=== PATIENT | female | born 1965 | race Caucasian/White ===

== ENCOUNTER → 2019-03-29 09:42 | Outpatient (BNVA) | payer OTHER, SELFPAY | PROVIDERS: Family Provider Internal Medicine; PCP Internal Medicine; Visit Provider Psychiatry & Neurology Psychiatry | DX: Z01.89 Encounter for other specified special examinations (principal) | CPT/HCPCS: 36415; 80053; 80061; 83036; 84443; 85025 ==

== ENCOUNTER 2019-12-24 15:28 | Emergency (ER) | payer OTHER, SELFPAY ==
[2019-12-24] VITALS (7 sets, daily range): BP systolic 157–196; BP diastolic 80–116; PULSE 86–97; RESP 14–20; TEMP 36.7; O2SAT 94–97; BMI 38.4
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
[2019-12-24 16:18] LABS: Basophils # 0.1 10^3/uL (0.0-0.1); Basophils % 0.6 %; Eosinophils # 0.4 10^3/uL (0.0-0.8); Eosinophils % 4.1 %; Hematocrit 43.4 % (37.0-47.0); Hemoglobin 13.9 g/dL (11.5-15.3); Lymphocytes # 2.3 10^3/uL (0.8-4.8); Lymphocytes % 23.1 %; Mean Corpuscular Volume 84.3 fL (81-99); Mean Platelet Volume 9.6 fL (7.4-10.4); Monocytes # 0.6 10^3/uL (0.2-0.9); Monocytes % 6.1 %; Neutrophils # 6.48 10^3/uL (1.8-7.7); Neutrophils % 65.8 %; Nucleated Red Blood Cells % 0 %; Platelet Count 317 10^3/cmm (130-400); Red Blood Count 5.15 10^6/uL (4.1-5.3); Red Cell Distribution Width 13.2 % (12.1-15.1); White Blood Count 9.8 10^3/uL (4.0-10.0)
[2019-12-24 16:39] LABS: Alanine Aminotransferase 47 U/L (0-33); Albumin Level 4.2 g/dL (3.5-5.2); Alkaline Phosphatase 100 IU/L (35-105); Anion Gap 17.5 (5-19); Aspartate Amino Transferase 37 U/L (0-32); Blood Urea Nitrogen 11 mg/dL (6-20); Carbon Dioxide 23 mmol/L (22-29); Chloride 104 mmol/L (98-107); Globulin 2.3 g/dL (1.3-4.6); Glomerular Filtration Rate 74.7 mL/min (90-130); Glucose 122 mg/dL (65-115); Osmolality Calculated 293 mOsm/kg (285-295); Potassium 3.5 mmol/L (3.5-5.1); Sodium 141 mmol/L (136-145); Total Bilirubin 0.3 mg/dL (0.15-1.2); Total Protein 6.5 g/dL (6.6-8.7)
[2019-12-24] MEDS: iohexol 300 mg/mL 100 mL Btl IV (17:16)
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
--- NOTE | 2019-12-24 19:00 | PC.NURSE ---
report received from ZHENG Acosta and care transferred to ZHENG Granados
[2019-12-24 19:17] LABS: Add Urine Microscopic? NO
[2019-12-24 19:25] LABS: Bilirubin Urine Neg (Negative); Blood Urine Neg (Negative); Glucose Urine UA Norm (Normal); Ketones Urine Negative (Negative); Leukocyte Esterase Urine Negative (Negative); Nitrate Urine Negative (Negative); Protein Urine Neg (Negative); Urine Appearance Clear (CLEAR); Urine Color Yellow (Yellow); Urobilinogen Urine Norm (Negative); pH Urine 6.5 (5-7)
== END 2019-12-24 20:21 | disposition home or self-care (01) ==
PROVIDERS: Family Medicine; Emergency Provider Emergency Medicine; Family Provider Internal Medicine
DX: S39.012A Strain of muscle, fascia and tendon of lower back, initial encounter (principal); Z87.891 Personal history of nicotine dependence; V89.2XXA Person injured in unspecified motor-vehicle accident, traffic, initial encounter
CPT/HCPCS: 12345; 70450; 71260; 72125; 72131; 74177; 80053; 81003; 85025; 99283; Q9967

== ENCOUNTER → 2021-07-08 10:17 | Outpatient (BNVA) | payer OTHER, SELFPAY | PROVIDERS: Family Provider Internal Medicine; PCP Family Medicine; Visit Provider Nurse Practitioner Psychiatric/Mental Health | DX: Z79.899 Other long term (current) drug therapy (principal); Z51.81 Encounter for therapeutic drug level monitoring; Z03.89 Encounter for observation for other suspected diseases and conditions ruled out | CPT/HCPCS: 80053; 80175; 84439; 84443; 85025 ==

== ENCOUNTER 2024-04-18 11:29 | Outpatient (CLI) | payer BC, MEDICAID, SELFPAY ==
--- NOTE | 2024-04-18 11:35 | XR_ITS ---
WS: [id number] Right ankle, 3 views, 04/18/2024 Clinical Data: RIGHT ANKLE PAIN Comparison: Right ankle, 09/29/2011 Findings: No fractures or dislocations are seen. The ankle mortise is normal. The talus and calcaneus are unrem arkable. No soft tissue swelling over the medial or lateral malleolus is seen. There is a plantar spur and calcaneal spur. XR/XR ankle RT min 3V* [id number] Impression: Negative right ankle.
== END 2024-04-18 11:30 | disposition home or self-care (01) ==
LOC: RAD 11:31
PROVIDERS: PCP Family Medicine; Visit Provider Family Medicine
DX: M25.571 Pain in right ankle and joints of right foot (principal); M77.31 Calcaneal spur, right foot; M77.8 Other enthesopathies, not elsewhere classified
CPT/HCPCS: 73610

== ENCOUNTER → 2024-04-19 10:54 | Outpatient (BNVA) | payer BC, MEDICAID, SELFPAY | PROVIDERS: PCP Family Medicine; Visit Provider Student in an Organized Health Care Education/Training Program | DX: M79.641 Pain in right hand (principal); M18.11 Unilateral primary osteoarthritis of first carpometacarpal joint, right hand | CPT/HCPCS: 73130 ==

== ENCOUNTER → 2024-05-04 10:52 | Outpatient (BNVA) | payer BC, MEDICAID, SELFPAY | PROVIDERS: PCP Family Medicine | DX: R50.9 Fever, unspecified (principal); J10.1 Influenza due to other identified influenza virus with other respiratory manifestations; R06.2 Wheezing | CPT/HCPCS: 87400 ==

== ENCOUNTER 2024-05-20 06:50 | Day surgery (SDC) | payer BC, MEDICAID, SELFPAY ==
[2024-05-20] VITALS (9 sets, daily range): BP systolic 123–164; BP diastolic 64–85; PULSE 71–80; RESP 16–18; TEMP 36.3–37.1; O2SAT 95–100; BMI 39.6
[2024-05-20] MEDS: scopolamine 1 mg PATCH 1 PATCH TRANSDERMA (07:22)
[2024-05-20] MEDS: ketorolac 30 mg/mL INJ IVP (07:22)
[2024-05-20] MEDS: sodium chloride 0.9% 1,000 ML 30 ML IV (07:29)
[2024-05-20] MEDS: acetaminophen 1,000 MG/100 ML PIGGYBACK 400 MG IV (07:31)
--- NOTE | 2024-05-20 09:04 | ANES.PREANE2 ---
Pre-Anesthetic Assessment Height/Weight: Height 1.55 m Weight 95.254 kg Temp Pulse Resp BP Pulse Ox O2 Del Method 97.6 F 79 18 150/74 95 Room Air 05/20/24 07:13 05/20/24 07:13 05/20/24 07:13 05/20/24 07:22 05/20/24 07:13 05/20/24 07:14 Preop Diagnosis: Mucous Cyst Operation Date: 05/20/24 09:30 Proposed Procedures p index finger mucous cyst excision W/dorsal osteophyte ostectomy & middle finger mucous cyst excision W/ dorsal osteophyte ostectomy(Right) - Elvis Yeager DO Familial anesthetic complications: none Was Beta Lindsay taken within 24 hours: N/A Was Clonidine taken within 24 hours: N/A Last intake: Intake Last Liquid Date 05/20/24 Last Liquid Time 06:00 Last Solid Date 05/19/24 Last Solid Time 18:00 Social Alcohol and No tobacco occassional Alcohol Exam alert, oriented x 3, clear to auscultation bilaterally and regular rate & rhythm Airway Submandibular: within normal limits Cervical ROM: within normal limits Mallampati: Class II Dentition: full History/ROS No significant history except as noted and No significant complaints Pulmonary Chronic Obstructive Pulmonary Disease, Exertional Dyspnea and Sleep Apnea CPAP at Night CV/HEM Hypertension None reported Hepatic None reported GI None reported Metabolic None reported Musc/skel None reported Neuropsych None reported Anesthetic Plan ASA status: 2 Anesthesia: MAC Risk of > 500 ml blood loss (7ml/kg in children): No Medications/Allergies Home Medications ?Medication ?Instructions ?Recorded ?Confirmed ?Last Taken ?Type fexofenadine 180 mg tablet 180 mg PO DAILY 07/24/19 05/17/24 05/16/24 History (Cici Allergy) lisinopril 20 mg tablet 40 mg (2 x 20 mg) PO DAILY #180 03/09/22 05/17/24 05/16/24 Rx tabs atorvastatin 40 mg tablet 40 mg PO .q hs 01/26/23 05/17/24 05/16/24 History levothyroxine 112 mcg capsule 112 mcg PO DAILY 10/31/23 05/17/24 05/17/24 History lamotrigine 150 mg tablet 150 mg PO QAM #90 tabs 01/30/24 05/17/24 05/20/24 Rx Right Thumb CMC Joint Brace #1 ea 04/19/24 05/13/24 Unknown Rx buspirone 15 mg tablet 15 mg PO BID #60 tabs 05/06/24 05/17/24 05/20/24 Rx fluoxetine 40 mg capsule 80 mg (2 x 40 mg) PO QAM #60 caps 05/06/24 05/17/24 05/16/24 Rx budesonide-formoterol HFA 80 2 puff inhalation BID 05/13/24 05/17/24 05/17/24 History mcg-4.5 mcg/actuation aerosol inhaler lamotrigine 100 mg tablet 100 mg PO QPM 05/13/24 05/17/24 05/16/24 History pantoprazole 40 mg tablet,delayed 40 mg PO ONCE 05/13/24 05/17/24 05/16/24 History release Allergies Allergy/AdvReac Type Severity Reaction Status Date / Time No Known Allergies Allergy Verified 05/13/24 10:03 Current Medications Generic Name Dose Route Start Last Admin Trade Name Freq PRN Reason Stop Dose Admin Sodium Chloride 1,000 mls @ 30 mls/hr 05/20/24 07:15 05/20/24 07:29 Sodium Chloride 0.9% IV 05/21/24 07:14 30 mls/hr .Q24H LEO Administration PFSH Anesthesia Medical History Marital conflict Frequent headaches Essential hypertension Psychiatric care Social History (Updated 05/13/24 @ 10:02 by Dorinda Kapoor) Smoking and tobacco/nicotine status: never used tobacco/nicotine Quit status (tobacco/nicotine): has quit using Year quit tobacco: 03/1999 Former quit date comment: smoked for 20 years Current gender identity: Male Data Anesthesia Cardiac Studies: No Data to Display
--- NOTE | 2024-05-20 09:41 | W.PM.OPSUD ---
Surgery/Procedure H&P Update DATE OF PROCEDURE: May 20, 2024 DATE H&P PERFORMED: 04/19/24 H&P UPDATE INFORMATION: I have reviewed H&P completed within last 30 days, I have examined patient prior to procedure and No changes to prior documentation PREOP DIAGNOSIS: Right index and middle finger mucous Cyst, prominent dorsal osteophytes PRIMARY INDICATION FOR PROCEDURE: Right index and middle finger mucous Cyst with prominent dorsal osteophytes PLANNED PROCEDURE: Operation Date: 05/20/24 09:30 Proposed Procedures p index finger mucous cyst excision W/dorsal osteophyte ostectomy & middle finger mucous cyst excision W/ dorsal osteophyte ostectomy(Right) - Elvis Yeager DO
[2024-05-20] MEDS: ceFAZolin 2,000 MG in sodium chloride 0.9% (plus) 50 ML 100 MG IV (10:00)
--- NOTE | 2024-05-20 11:17 | P.OP_ITS ---
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 She has been worked up in the outpatient setting and is failed conservative treatment approach.? Patient has right index and middle finger noticeable?mucous?cyst?that appears to be associated with DIP arthritis with possible dorsal osteophyte prominence.? Patient's failed conservative tx.? She wishes to proceed with surgical intervention.? We talked about the risk benefits complications and alternatives with surgical nonsurgical treatment options.? Understanding risk of surgery she agrees to proceed with a right index finger mucous cyst excision W/dorsal osteophyte ostectomy & middle finger mucous cyst excision W/ dorsal osteophyte ostectomy.? All questions answered. Procedure: Patient was seen evaluated in the preoperative holding area.? Consent was reviewed and signed with patient.? Correct extremity was then marked.? Patient was then seen and evaluated by the anesthesia department once cleared for surgery patient was then taken back to the operative suite patient was placed in supine position and all bony prominences well-padded the patient was properly secured to the bed.? Armboard was applied to the right upper extremity. This point time the right upper extremity was then prepped and draped in standard orthopedic fashion.? A final timeout was performed.? Patient received appropriate preoperative antibiotics. Prior to proceeding with incision sites I then performed digital block of the right index and middle finger under sterile aseptic technique A nonsterile tourniquet had been applied to the right upper extremity Esmarch tourniquet was used exsanguinate right upper extremity tourniquet insufflated 250 mmHg. We started off with the right index finger at the DIP joint. Patient had a fixed flexion contracture with significant prominent palpable cyst/osteophyte on the dorsal index finger on the radial and ulnar sides of the digit. As a result decision was made to do an H-type incision over the DIP joint standard H incision was made with through skin only switched to [place] blade and meticulous dissection was made subcutaneous tissue and full-thickness flaps both proximally and distally. At this point in time I had not direct visualization of the extensor mechanism there was no palpable or visible mucous cyst on the index finger patient had significant prominent osteophytes which is what was causing the prominence dorsally. As a result I made 2 parallel incisions on the radial and ulnar sides of the extensor mechanism and then subsequently under meticulous dissection staying directly on bone peeled the under surface adhesions of the extensor mechanism off of the dorsal prominent osteophytes that were causing such prominence and pain on the patient. Once again it was clearly evident looking at the DIP joint that there was DIP joint arthritis I subsequently utilized a synovial rongeur to rongeur off the prominent osteophyte on the radial side of the digit and then mobilizing over on the ulnar side was able to perform the same dorsal osteophyte ostectomy with synovial rongeur to its entirety where there is no longer any dorsal prominence. At this point in time I then utilized a small tipped rasp and then subsequently keeping the extensor mechanism intact rasp the dorsal prominent osteophytes to smooth this all out completely flush with the middle phalanx this was satisfactory on visualization as well as through digital palpable inspection. At this point in time this completed the procedure to the right index finger this was thoroughly irrigated and I moved onto the right middle finger. The right middle finger was very comparable and its dorsal osteophyte prominence with both a prominent radial and ulnar sides of the digit at the DIP joint. As a result I once again since patient had a fixed flexion contracture with significant palpable cyst/osteophyte on the dorsal index finger on the radial and ulnar sides of the digit I decided to do an H-type incision over the DIP joint. Standard H incision was made through skin and switched to [place] blade meticulous dissection was made through the subcutaneous tissue creating full- thickness flaps with proximally and distally at this point in time I did visualize a small mucous cyst all once again creating both a parallel incision on the radial and ulnar sides of the extensor mechanism the cyst was very small in nature and immediately decompressed once I was removing the dorsal osteophyte on the ulnar side of the digit as result this was too small and hardly encapsulated to send for any specimen. At this point in time I then subsequently continued with my dissection once again peeling off the extensor retinaculum adhesions that were prominent on the dorsal osteophytes this was done both radially and ulnarly and once I had direct visualization protection of the extensor mechanism utilize a synovial rongeur to once again remove out the prominent osteophytes on the radial side of the digit and then mobilizing over the ulnar side perform the same dorsal osteophyte ostectomy with synovial rongeur to its entirety where there is no longer any dorsal prominence is off the ulnar side of the digit. At this point time I then use a small tipped rasp and subsequently keeping the extensor mechanism intact rest of the dorsal prominences and smooth this out till is completely flush with the middle phalanx this was satisfactory visualization as well as digital palpable bullocks inspection. This point time this completed procedure for the right middle finger. ? Tourniquet was deflated. Hemostasis was satisfactory. Wound bed was then thoroughly irrigated hemostasis was maintained with bipolar electrocautery.? Next I closed the incision with interrupted nylon suture.? Incision sites were then dressed with Xeroform 4 x 4's Kerlix Jacob wrap and an Anuel wrap.? Patient was then awakened from anesthesia and taken to PACU in stable condition. Disposition: Patient taken to PACU in stable condition recovering well.? Dressing on in place clean dry and intact.? Patient was receive appropriate discharge instruction as well as pain medication postoperatively.? Patient may be allowed weightbearing as tolerated to the right hand and encourage range of motion once dressing come down after 72 hours.? Patient to follow-up with ortho in the office in 2 weeks.? Patient understands and agrees with current plan.? All questions answered.
--- NOTE | 2024-05-20 11:17 | P.BOP_ITS ---
Date of Procedure: 05/20/2024 Surgeon: Elvis Yeager DO Product Development Actuary(s): None Procedure(s) performed: Right index finger DIP joint dorsal osteophyte ostectomy x 2 Right middle finger DIP joint mucous cyst excision Right middle finger DIP joint dorsal osteophyte ostectomy x 2 Findings of the procedure(s): Patient was found to have significant prominent dorsal osteophytes on both the radial and ulnar sides of the index finger and middle finger DIP joints. In the right index finger there is no significant mucous cyst appreciated this was all just significant prominent dorsal osteophytes which I subsequently made parallel incisions on the radial and ulnar side of the tendon and then mobilized the osteophytes and utilized a rongeur to remove the radial and ulnar sided osteophyte prominence and then utilized a rasp to flatten this down. Then thoroughly irrigated and this completed my work in the right index finger. Right middle finger was performed in the same fashion however there was a small little mucous cyst associated on the ulnar side while dissecting out the prominent dorsal osteophytes on the ulnar side I then subsequently in standard fashion mobilized on both the radial and ulnar sides the extensor tendon mechanism and then removed the dorsal osteophytes and utilized a rasp to smooth this out both extensor mechanisms were left intact however they were significantly stretched and chronic thinning appreciated due to the prominence of the previous osteophytes. Tourniquet deflated hemostasis factory patient placed in bulky dressing taken back to PACU in stable condition. Estimated blood loss: 5 mL Specimen(s) removed: Removed mucous cyst and dorsal osteophytes from the index middle finger these were not sent for pathology these were removed and all small fragmentations. 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
--- NOTE | 2024-05-20 12:20 | ANE.PACU2 ---
Inpatient post-anesthesia follow up: Airway intact: Yes Vital signs: Temperature 98.7 F Pulse Rate 80 Respiratory Rate 16 Blood Pressure 123/85 Pulse Oximetry 96 Oxygen Delivery Me thod Room Air Oxygen Flow Rate 4 Fraction of Inspir ed Oxygen Hydration adequate: Yes Nausea and vomiting: No Pain level: 1 Mental status: Baseline
== END 2024-05-20 12:20 | disposition home or self-care (01) ==
PROVIDERS: PCP Family Medicine; Visit Provider Student in an Organized Health Care Education/Training Program
PROC: (CPT 26236; principal; 2024-05-20 09:30)
DX: M25.741 Osteophyte, right hand (principal); M25.841 Other specified joint disorders, right hand; M19.041 Primary osteoarthritis, right hand; I10 Essential (primary) hypertension; Z87.891 Personal history of nicotine dependence; Z79.899 Other long term (current) drug therapy; Z79.890 Hormone replacement therapy
CPT/HCPCS: 26236 ×2; J0131; J0690; J1885; J2704; J3010; J7030

== ENCOUNTER 2024-05-24 12:10 | Outpatient (CLI) | payer BC, MEDICAID, SELFPAY ==
--- NOTE | 2024-05-24 12:15 | MR_ITS ---
WS: [id number] MRI BRAIN WITH AND WITHOUT CONTRAST HISTORY: G43.909 - Migraine, unspecified, not intractable, without... COMPARISON: 03/26/2015, CT head 12/24/2019 TECHNIQUE: Multiplanar imaging performed through the brain with MultiHance 20 ml's IV. No acute infarcts are seen. River-white matter differentiation is well preserved. There are a few tiny subcortical foci in the LEFT frontal lobe. No prior infarct and no hemorrhage. No susceptibility artifacts or prior lacunar infarcts. Ventricles and extra-axial spaces are normal. Partially empty sella turcica. Clivus is normal. Visualized posterior fossa and brainstem are also normal. Postcontrast images are negative for masses or vascular malformations. Dural venous sinuses are normal. Paranasal sinuses: Small polyp or mucous retention cyst in the RIGHT maxillary sinus. Mastoid air cells: Normal. Calvarium and scalp: Normal. MR/MR head wo/w con [id number] IMPRESSION: 1. No acute infarct or hemorrhage. 2. No enhancing masses or vascular malformations. 3. Incidental note is made of a partially empty sella turcica. 4. Minimal small vessel disease. Similar to the prior study from 03/26/2015.
[2024-05-24] MEDS: gadobenate dimeglumine 20 mL vial IV (12:56)
== END 2024-05-24 12:11 | disposition home or self-care (01) ==
LOC: RAD 12:10
PROVIDERS: PCP Family Medicine; Visit Provider Psychiatry & Neurology Neurology
DX: G43.909 Migraine, unspecified, not intractable, without status migrainosus (principal); R93.0 Abnormal findings on diagnostic imaging of skull and head, not elsewhere classified
CPT/HCPCS: 70553

== ENCOUNTER → 2024-06-18 10:39 | Outpatient (BNVA) | payer BC, SELFPAY | PROVIDERS: Visit Provider Podiatrist Foot & Ankle Surgery | DX: M25.571 Pain in right ankle and joints of right foot (principal); M79.671 Pain in right foot; M76.71 Peroneal tendinitis, right leg | CPT/HCPCS: 73610; 73620 ==

== ENCOUNTER 2024-06-18 12:58 | Outpatient (RCR) | payer BC, SELFPAY | END 2024-06-24 23:59 | disposition home or self-care (01) | LOC: SOT 12:58 | PROVIDERS: Visit Provider Physician Assistant | DX: M19.041 Primary osteoarthritis, right hand (principal); M71.341 Other bursal cyst, right hand | CPT/HCPCS: 97165 ==

== ENCOUNTER 2024-06-25 12:55 | Outpatient (CLI) | payer BC, MEDICAID, SELFPAY ==
--- NOTE | 2024-06-25 13:00 | MRR_ITS ---
PROCEDURE INFORMATION: Exam: MR Right Lower Extremity Joint Without Contrast; Ankle Exam date and time: 06/25/2024 1:10 PM Age: 59 years old Clinical indication: Ankle; Right; The condition began in March while performing a ballet-type exercise without a specific twisting injury, but rather the pain initiated with the activity. The pain persists and is made worse by walking, with continuous discomfort that minimally eases at rest. The pain's trajectory begins from the toe, through the foot, to the heel's back, being most intense around the peroneal groove. ; Additional info: Eval for tendon and ligaments tears and ruptures, suspects a peroneal tendon tear TECHNIQUE: Imaging protocol: Magnetic resonance imaging of the right lower extremity without contrast. Exam focused on the ankle. COMPARISON: CR XR ankle RT min 3V* [id number] 06/18/2024 10:46 AM FINDINGS: Bones/joints: See Peroneal tendons finding. LIGAMENTS: Distal tibiofibular syndesmosis: Unremarkable. No tear. Anterior talofibular ligament: Unremarkable. No tear. Posterior talofibular ligament: Unremarkable. No tear. Calcaneofibular ligament: Unremarkable. No tear. Deltoid ligament complex: Unremarkable. No tear. TENDONS: Flexor tendons of foot: Unremarkable as visualized. Tibialis posterior tendon: Unremarkable as visualized. Peroneal tendons: Peroneal tendon: There is evidence of a high-grade partial tear involving the peroneal longus tendon as it courses underneath the cuboid bone with increased indistinct fluid-like signal changes as well as a well discerned cleft involving majority of tendon thickness at this location. No obvious tendinous retraction detected. Peroneal brevis tendon is intact. Extensor tendons of foot: Unremarkable as visualized. Tibialis anterior tendon: Unremarkable as visualized. Achilles tendon: Unremarkable as visualized. Tarsal canal (Sinus tarsi): Unremarkable. Normal signal of the fat. Tarsal tunnel: Unremarkable. Soft tissues: Unremarkable. Plantar fascia: Plantar fascia is unremarkable. MR/MR ankle RT wo con* [id number] IMPRESSION: High-grade partial tear involving the peroneal longus tendon located underneath the cuboid bone.
== END 2024-06-25 12:56 | disposition home or self-care (01) ==
PROVIDERS: PCP Family Medicine; Visit Provider Podiatrist Foot & Ankle Surgery
DX: M76.71 Peroneal tendinitis, right leg (principal); S96.811A Strain of other specified muscles and tendons at ankle and foot level, right foot, initial encounter; X58.XXXA Exposure to other specified factors, initial encounter; R93.6 Abnormal findings on diagnostic imaging of limbs
CPT/HCPCS: 73721

== ENCOUNTER 2024-08-01 08:17 | Day surgery (SDC) | payer BC, MEDICAID, SELFPAY ==
[2024-08-01 08:47] VITALS: BMI 38.4
[2024-08-01 08:49] VITALS: BP 163/87; PULSE 73; RESP 18; TEMP 36.6; O2SAT 94
[2024-08-01 08:54] VITALS: BP 163/87
[2024-08-01] MEDS: ketorolac 30 mg/mL INJ IVP (08:54)
[2024-08-01] MEDS: scopolamine 1 mg PATCH 1 PATCH TRANSDERMA (08:54)
[2024-08-01] MEDS: acetaminophen 1,000 MG/100 ML PIGGYBACK 400 MG IV (08:54)
--- NOTE | 2024-08-01 08:54 | XR_ITS ---
WS: [id number] Exam: XR finger RT min 2V [id number] Date/Time of Exam: 08/01/2024 8:54 AM Reason For Exam: OR PIC, Comparison 04/19/2024. Limited intraoperative images of the RIGHT hand confirm excision of the greater and lesser multangular. Images obtained for intraoperative purposes.
[2024-08-01] MEDS: sodium chloride 0.9% 1,000 ML 30 ML IV (08:55)
--- NOTE | 2024-08-01 09:13 | ANES.PREANE2 ---
Pre-Anesthetic Assessment Height/Weight: Height 5 ft 2 in Weight 210 lb Temp Pulse Resp BP Pulse Ox O2 Del Method 98 F 73 18 163/87 94 Room Air 08/01/24 08:49 08/01/24 08:49 08/01/24 08:49 08/01/24 08:54 08/01/24 08:49 08/01/24 08:49 Preop Diagnosis: Arthritis of CMC joint of thumb Operation Date: 08/01/24 09:50 Proposed Procedures p RIGHT Basil Thumb Joint Arthroplasty(Right) - Elvis Yeager, DO Was Beta Lindsay taken within 24 hours: N/A Was Clonidine taken within 24 hours: N/A Last intake: Intake Last Liquid Date 07/31/24 Last Liquid Time 23:00 Last Solid Date 07/31/24 Last Solid Time 23:00 Social No alcohol and No tobacco Exam alert, oriented x 3, clear to auscultation bilaterally and regular rate & rhythm Airway Submandibular: Other (Borderline TM distance) Cervical ROM: within normal limits Mallampati: Class II Dentition: full Anesthetic Plan ASA status: 3 Anesthesia: MAC and Regional (specify below) Other: No prior issues with anesthesia NPO since yesterday evening History of hypertension on lisinopril Hypothyroidism on Synthroid GERD, controlled with Pepcid Denies any pulmonary issues plan for pre-op PNB with MAC anesthesia Medications/Allergies Home Medications ?Medication ?Instructions ?Recorded ?Confirmed ?Last Taken ?Type lisinopril 20 mg tablet 40 mg (2 x 20 mg) PO DAILY #180 03/09/22 07/31/24 07/31/24 Rx tabs atorvastatin 40 mg tablet 40 mg PO .q hs 01/26/23 07/31/24 07/31/24 History levothyroxine 112 mcg capsule 112 mcg PO DAILY 10/31/23 07/31/24 08/01/24 History Right Thumb CMC Joint Brace #1 ea 04/19/24 07/30/24 07/31/24 Rx budesonide-formoterol HFA 80 2 puff inhalation BID PRN 05/13/24 07/31/24 07/31/24 History mcg-4.5 mcg/actuation aerosol Shortness Of Breath inhaler pantoprazole 40 mg tablet,delayed 40 mg PO ONCE 05/13/24 07/31/24 07/31/24 History release buspirone 15 mg tablet 15 mg PO BID #60 tabs 06/03/24 07/31/24 07/31/24 Rx fluoxetine 40 mg capsule 80 mg (2 x 40 mg) PO QAM #60 caps 06/03/24 07/31/24 07/31/24 Rx lamotrigine 100 mg tablet 100 mg PO QPM #30 tabs 06/03/24 07/31/24 07/31/24 Rx lamotrigine 150 mg tablet 150 mg PO QAM #30 tabs 06/03/24 07/31/24 07/31/24 Rx Spectrum style-AFO to right #1 ea 07/30/24 07/30/24 07/31/24 Rx Allergies Allergy/AdvReac Type Severity Reaction Status Date / Time No Known Allergies Allergy Verified 07/30/24 14:19 Current Medications Generic Name Dose Route Start Last Admin Trade Name Freq PRN Reason Stop Dose Admin Sodium Chloride 1,000 mls @ 30 mls/hr 08/01/24 08:30 08/01/24 08:55 Sodium Chloride 0.9% IV 08/02/24 08:29 30 mls/hr .Q24H LEO Administration PFSH Anesthesia Medical History Marital conflict Frequent headaches Essential hypertension Psychiatric care Social History Smoking and tobacco/nicotine status: former use of tobacco/nicotine Quit status (tobacco/nicotine): has quit using Year quit tobacco: 03/1999 Former quit date comment: smoked for 20 years Current gender identity: Female
--- NOTE | 2024-08-01 09:58 | ANES.PROC ---
Anesthesia Procedures Procedure/Date: 08/01/24 Nerve Block ^: Nerve Block 1: Main Anesthesia: other (100 mcg fentanyl and 2 mg Versed) Time Out Performed: Yes Consent: requested by attending/covering physician and from patient Nerve block location: supraclavicular Anesthesia monitors applied: pulse oximetry, EKG, BP cuff and oxygen Nerve block position: supine Anesthetic Used: ropivicaine 0.5% Amount of anesthesia used (mL): 30 Ultrasound used to: recognize landmarks Nerve Stimulator Used?: Yes Interscalene/Femoral BLK: other needle (pjunk 4 inch) Injection: neg aspiration of heme Patient Tolerated Procedure: well Complications: none Additional Comments: Decadron 4 mg added to block
--- NOTE | 2024-08-01 10:02 | PC.NURSE ---
0950 patient placed on 2lpm o2 via n/c and placed on the monitor, right shoulder block performed by traci 30 ml total of 0.5% ropivicaine injected using ultrasound guidance. patient tolerated well
--- NOTE | 2024-08-01 10:40 | W.PM.OPSUD ---
Surgery/Procedure H&P Update DATE OF PROCEDURE: August 01, 2024 DATE H&P PERFORMED: 07/09/24 H&P UPDATE INFORMATION: I have reviewed H&P completed within last 30 days, I have examined patient prior to procedure and No changes to prior documentation PREOP DIAGNOSIS: Arthritis of CMC joint of thumb PRIMARY INDICATION FOR PROCEDURE: Right thumb CMC basal joint arthritis PLANNED PROCEDURE: Operation Date: 08/01/24 09:50 Proposed Procedures p RIGHT Basil Thumb Joint Arthroplasty(Right) - Elvis Yeager DO
[2024-08-01] MEDS: ceFAZolin 2,000 MG in sodium chloride 0.9% (plus) 50 ML 100 MG IV (11:00)
--- NOTE | 2024-08-01 12:42 | W.PM.BPON ---
Date of Procedure: 08/01/2024 Surgeon: Elvis Yeager DO Assembler Watch Train(s): Flaco Yeager PA-C Procedure(s) performed: Right thumb basal joint arthroplasty Right thumb APL tendon slip transfer Findings of the procedure(s): Patient underwent procedure as planned without issues or complications Estimated blood loss: 10 mL Specimen(s) removed: Trapezium removed Post-operative diagnosis: Right thumb basal joint arthritis
--- NOTE | 2024-08-01 12:43 | PM.OP ---
Operative Report Date of procedure: August 01, 2024 Surgeon: Elvis Yeager DO Finger Buffs Assembler: Flaco Yeager PA-C: PA was necessary for assistance in this case with hand positioning to execute the procedure, retraction and protection of neurovascular structures as well as to assist with wound closure and dressing application Procedure: Preoperative diagnosis: Right thumb?basal?joint?arthritis Procedure done: Right thumb?basal?joint?arthroplasty? Right thumb APL tendon slip transfer Implants: Arthrex fiber lock suspension implant kit for?basal?joint?arthroplasty Surgeon: Elvis Yeager DO Estimated blood loss: 10mL Tourniquet time: 77? min Complications: none IV fluids -800 mL Condition: stable Disposition: same day Brief History: Patient's been seen and worked up in the outpatient setting.? Findings consistent with a Right thumb?basal?joint?severe arthritis. This is failed conservative treatment only provided minimal relief and at this point time her only other treatment option surgical intervention of the Right thumb?basal?joint arthroplasty.? We talked about surgery in detail about the risk benefits complication alternatives to surgical nonsurgical treatment options.? At this point time her persistent pain is causing her significant issues.? She does understand with the?basal?joint?arthroplasty potential loss of range of motion as well as strength but ultimately this would provide her with significant pain relief.? Through shared decision making she elects proceed with surgical intervention of Right thumb?basal?joint?arthroplasty.? Once again she understands risk benefits complication alternatives to each treatment option understanding risk elects to proceed with surgery. Procedure: Patient seen evaluated in the preoperative holding area.? Consent was signed and reviewed with patient.? Correct extremity marked.? Once cleared by anesthesia patient was taken back to the operative suite.? Underwent anesthesia per the anesthesia department.? Patient was placed in supine position all bony prominences well-padded patient was properly secured to the bed.? Underwent anesthesia for the anesthesia department.? A armboard was placed to the Right upper extremity a nonsterile tourniquet applied to the Right upper arm.? Once appropriately anesthetized Right upper extremity was then prepped and draped in standard orthopedic fashion.? Final timeout performed.? Patient received appropriate preoperative antibiotics. Esmarch was used exsanguinate the Right upper extremity and tourniquet was insufflated to 250 mmHg. ?I then utilized a 15 blade in standard longitudinal fashion directly over the Right thumb?basal?joint?.? Sharp scalpel incision was made through skin only.? I then switched to Littler dissection scissors and dissected out the dorsal cutaneous branches which were protected throughout this case.? I then identified the APL and EPL tendons.? I then performed a first dorsal compartment release under direct visualization with loupe magnification.? At this point time I then mobilized the tendons with a blunt wheatie self retractor and went through this interval.? Next I was directly onto the CMC?joint?dorsal capsule.? I then subsequently utilized my dissection scissors to dissect out the dorsal branch radial artery which was then identified and protected by my assistant director of plant operations throughout this case with a Kasdan retractor.? Once I identified the radial artery and dorsal branch I then subsequently performed my capsulotomy of the first CMC?joint?with Cantwell blade.? I then introduced a Mauldin into the arthritic space at the first CMC?joint.? This was confirmed with mini C arm to be the appropriate bone prior to performing my trapeziectomy.? The trapezium was then shelled out and its entirety with a McClamary elevator, freer, and [place] blade with care to protect and not injure any of my remaining carpal bone articular cartilage as well as not to damage the/injure the radial artery as it was protected throughout the case.? This was then removed and identified the FCR within the floor of my incision.? Trapeziectomy was complete and confirmed on mini C arm. At this point time I thoroughly irrigated and removed of all residual bony debris.? There was no significant arthritic changes of the STT?joint. I then subsequently plan to proceed with utilizing Arthrex fiber lock suspensioplasty kit which was then opened and then subsequently drilled into the second metacarpal base.? Once I confirm my appropriate placement with mini C arm all suture anchor.? Once this was confirmed appropriate placement I then drilled the impacted and deployed the bicortical suture anchor.? This had excellent tension and could lift the arm off of the table with its fixation.? I then subsequently identified the radial aspect of the first metacarpal and at its mid substance on the radial aspect I subsequently drilled tapped and holding the thumb in appropriate adduction with not over distraction keeping it in line with the base of the second and subsequently loaded suturetape under appropriate tension and thumb positioning keeping the thumb in adduction and appropriate length impacted this suture anchor which had excellent fixation and the excess suture was then removed.? This was then confirmed to have excellent axial stability and an appropriate suspensioplasty.? Thumb?joint?was stable with axial loading however there was concern for possible impingement if taken through excessive abduction in order to prevent this selected to proceed with APL tendon slip transfer and interposition. This was used to help add Stability and abduction positioning and was to prevent impingement and to help add with fixation& interposition within the voided space from the trapeziectomy.? I then identified a slip of the APL which was then harvested proximally and then weaved this through and around the FCR tendon and then tied this onto the APL tendon itself which created a soft tissue interposition as well as added appropriate abduction to the thumb with appropriate thumb position.? This was then secured with 2 horizontal mattress stitches with 4-0 FiberWire.? I then took the excess of the APL tendon and then placed this within the voided space as a interposition.? I then subsequently had the tourniquet deflated.? Hemostasis was satisfactory.? I then took some Gelfoam to add for soft tissue and interposition within the voided space and hemostasis.? ?Wound bed was once again thoroughly irrigated.? I then closed the incision with deep 3-0 Vicryl and nylon running stitch for skin. final x-rays with mini C arm were then taken showing stable trapeziectomy with soft tissue and suture anchor interposition.? Thumb had excellent axial stability as well as appropriate positioning.? Patient was then dressed with 4 x 4's ABD Curlex and a thumb spica splint With an Anuel wrap.? Patient was awakened from anesthesia and taken to PACU in stable condition. Disposition: Patient taken to PACU in stable condition recovering well.? Patient will receive appropriate discharge instructions as well as pain medication postoperatively. Patient to be 6 weeks of immobilization in thumb spica patient will follow therapy protocol with OT hand therapy for?basal?joint?arthroplasty.? Patient and family understand agrees with current plan.? All questions answered.? We will see in ortho office in 2 weeks.
[2024-08-01 12:55] VITALS: BP 175/70; PULSE 75; RESP 18; TEMP 36.4; O2SAT 94
[2024-08-01 13:00] VITALS: BP 165/86; PULSE 72; RESP 18; O2SAT 94
--- NOTE | 2024-08-01 13:02 | P.PCN_ITS ---
PACU note Narrative: Patient is a 59 female just underwent a right thumb basal joint arthroplasty. Patient transferred to PACU in stable condition. Pain is well controlled. Dressing on hand is dry and in place. Patient's fingers are warm and well- perfused. Patient can wiggle fingers. normal cap refill under 2 seconds. Unable to perform any further assessment due to residual block. Exam: awake Disposition: discharged
[2024-08-01 13:07] VITALS: BP 170/82; PULSE 69; RESP 18; O2SAT 94
[2024-08-01 13:10] VITALS: BP 174/76; PULSE 72; RESP 18; TEMP 36.3; O2SAT 93
--- NOTE | 2024-08-01 14:05 | ANE.PACU2 ---
Inpatient post-anesthesia follow up: Airway intact: Yes Vital signs: Temperature 97.4 F Pulse Rate 72 Respiratory Rate 18 Blood Pressure 174/76 Pulse Oximetry 93 Oxygen Delivery Me thod Room Air Oxygen Flow Rate Fraction of Inspir ed Oxygen Hydration adequate: Yes Nausea and vomiting: No Pain level: 1 Mental status: Baseline
== END 2024-08-01 14:05 | disposition home or self-care (01) ==
PROVIDERS: PCP Family Medicine; Visit Provider Student in an Organized Health Care Education/Training Program
PROC: (CPT 25310; principal; 2024-08-01 09:50)
PROC: (CPT 25310; 2024-08-01 09:50)
DX: M18.11 Unilateral primary osteoarthritis of first carpometacarpal joint, right hand (principal); M19.041 Primary osteoarthritis, right hand; I10 Essential (primary) hypertension; E03.9 Hypothyroidism, unspecified; K21.9 Gastro-esophageal reflux disease without esophagitis; Z79.890 Hormone replacement therapy; Z79.899 Other long term (current) drug therapy; Z87.891 Personal history of nicotine dependence
CPT/HCPCS: 25310; 73140; 76000; A6215; C1713; J0131; J0690; J1885; J2250; J2704; J3010; J7030; J9999

== ENCOUNTER 2024-08-20 11:20 | Outpatient (CLI) | payer BC, MEDICAID, SELFPAY | END 2024-08-20 11:21 | disposition home or self-care (01) | LOC: SOT 11:21 | PROVIDERS: PCP Family Medicine; Visit Provider Physician Assistant | DX: Z46.89 Encounter for fitting and adjustment of other specified devices (principal); M18.11 Unilateral primary osteoarthritis of first carpometacarpal joint, right hand | CPT/HCPCS: 97760; L3807 ==

== ENCOUNTER → 2024-09-17 10:07 | Outpatient (BNVA) | payer BC, MEDICAID, SELFPAY | PROVIDERS: PCP Family Medicine; Visit Provider Physician Assistant | DX: Z98.890 Other specified postprocedural states (principal); M65.321 Trigger finger, right index finger | CPT/HCPCS: 73130 ==

== ENCOUNTER 2024-09-19 09:52 | Outpatient (RCR) | payer BC, MEDICAID, SELFPAY | END 2024-09-23 23:55 | disposition home or self-care (01) | LOC: SOT 09:52 | PROVIDERS: PCP Family Medicine; Visit Provider Student in an Organized Health Care Education/Training Program | DX: M18.11 Unilateral primary osteoarthritis of first carpometacarpal joint, right hand (principal) | CPT/HCPCS: 97165 ==

== ENCOUNTER → 2024-11-05 10:11 | Outpatient (BNVA) | payer BC, MEDICAID, SELFPAY | PROVIDERS: PCP Family Medicine; Visit Provider Physician Assistant | DX: Z98.890 Other specified postprocedural states (principal); M65.321 Trigger finger, right index finger | CPT/HCPCS: 73130 ==

== ENCOUNTER → 2024-11-11 13:35 | Outpatient (BNVA) | payer BC, MEDICAID, SELFPAY | PROVIDERS: PCP Family Medicine; Visit Provider Family Medicine | DX: F31.81 Bipolar II disorder (principal); E03.9 Hypothyroidism, unspecified | CPT/HCPCS: 80053; 80061; 84439; 84443; 85025 ==

== ENCOUNTER → 2024-12-31 12:49 | Outpatient (BNVA) | payer BC, MEDICAID, SELFPAY | PROVIDERS: PCP Family Medicine; Visit Provider Student in an Organized Health Care Education/Training Program | DX: Z98.890 Other specified postprocedural states (principal) | CPT/HCPCS: 73130 ==

== ENCOUNTER 2025-02-18 11:04 | Day surgery (SDC) | payer BC, MEDICAID, SELFPAY ==
[2025-02-18 11:24] VITALS: BP 149/97; PULSE 85; RESP 16; TEMP 36.6; O2SAT 97; BMI 38.4
--- NOTE | 2025-02-18 11:25 | ANES.PREANE2 ---
Pre-Anesthetic Assessment Height/Weight: Height 15.54 m Operation Date: 02/18/25 12:45 Proposed Procedures p EGD EGD with Biopsy [id number](Not Applicable) - Shar Jackson MD Familial anesthetic complications: None Was Beta Lindsay taken within 24 hours: N/A Was Clonidine taken within 24 hours: N/A Last intake: > 8hrs Social No alcohol and No tobacco Exam alert, oriented x 3, clear to auscultation bilaterally and regular rate & rhythm Airway Mallampati: Class III Dentition: full (poor dentition) Pulmonary Chronic Obstructive Pulmonary Disease CV/HEM Hypertension GI Gastroesophageal Reflux Disease Metabolic Hyperlipidemia, Morbid Obesity and Thyroid Disease Anesthetic Plan ASA status: 3 Anesthesia: MAC Risk of > 500 ml blood loss (7ml/kg in children): No Medications/Allergies Home Medications ?Medication ?Instructions ?Recorded ?Confirmed ?Last Taken ?Type lisinopril 20 mg tablet 40 mg (2 x 20 mg) PO DAILY #180 03/09/22 02/18/25 02/17/25 Rx tabs budesonide-formoterol HFA 80 2 puff inhalation BID PRN 05/13/24 02/18/25 02/17/25 History mcg-4.5 mcg/actuation aerosol Shortness Of Breath inhaler galcanezumab-gnlm 120 mg/mL 120 mg SUBCUT .ONCE PER MONTH #1 mL 09/20/24 02/18/25 02/06/25 Rx subcutaneous pen injector (Emgality Pen) atorvastatin 40 mg tablet (Lipitor) 40 mg PO DAILY 11/11/24 02/18/25 02/17/25 History levothyroxine 112 mcg capsule 112 mcg PO DAILY #90 caps 11/12/24 02/18/25 02/17/25 Rx imiquimod 3.75 % topical cream 1 packet topical DAILY #28 ea 12/23/24 02/18/25 02/13/25 Rx packet buspirone 15 mg tablet 15 mg PO BID #60 tabs 12/31/24 02/18/25 02/18/25 Rx fluoxetine 40 mg capsule 80 mg (2 x 40 mg) PO QAM #60 caps 12/31/24 02/18/25 02/17/25 Rx lamotrigine 100 mg tablet 100 mg PO QPM #30 tabs 12/31/24 02/18/25 02/17/25 Rx lamotrigine 150 mg tablet 150 mg PO QAM #30 tabs 12/31/24 02/18/25 02/17/25 Rx amlodipine 10 mg tablet 10 mg PO DAILY blood pressure #30 01/07/25 02/18/25 02/17/25 Rx tabs pantoprazole 40 mg tablet,delayed 40 mg PO DAILY #90 tabs 01/23/25 02/18/25 02/17/25 Rx release (Protonix) cefdinir 300 mg capsule 300 mg PO BID PRN migraines 02/13/25 02/18/25 Unknown History Allergies Allergy/AdvReac Type Severity Reaction Status Date / Time No Known Allergies Allergy Verified 02/18/25 11:19 [facility] Anesthesia Medical History Chronic obstructive pulmonary disease, unspecified COPD type Obesity (BMI 35.0-39.9 without comorbidity) GERD (gastroesophageal reflux disease) Chronic migraine HLD (hyperlipidemia) Marital conflict Frequent headaches Essential hypertension Psychiatric care Surgical History (Updated 01/30/25 @ 13:[address]) H/O: hysterectomy H/O arthroscopy Family History (Updated 01/30/25 @ 13:[address]) Mother Colon cancer Father Pancreatic cancer Family/Other Colon cancer moms side Uncle Social History Smoking and tobacco/nicotine status: former use of tobacco/nicotine Quit status (tobacco/nicotine): has quit using Year quit tobacco: 03/1999 Former quit date comment: smoked for 20 years Alcohol intake: current Alcohol intake frequency: holidays/special occasions only Substance/Drug Use: never Current gender identity: Female
--- NOTE | 2025-02-18 11:52 | W.PM.OPSUD ---
Surgery/Procedure H&P Update DATE OF PROCEDURE: February 18, 2025 DATE H&P PERFORMED: 01/30/25 H&P UPDATE INFORMATION: I have reviewed H&P completed within last 30 days, I have examined patient prior to procedure, No changes to prior documentation and Risks and benefits of the procedure reviewed PLANNED PROCEDURE: Operation Date: 02/18/25 12:45 Proposed Procedures p EGD EGD with Biopsy [id number](Not Applicable) - Shar Jackson MD
[2025-02-18 12:36] VITALS: BP 130/69; PULSE 96; RESP 16; TEMP 36.2; O2SAT 92
[2025-02-18 12:50] VITALS: BP 119/59; PULSE 94; RESP 16; O2SAT 94
--- NOTE | 2025-02-18 13:05 | ANE.PACU2 ---
Inpatient post-anesthesia follow up: Airway intact: Yes Vital signs: Temperature 97.1 F Pulse Rate 94 Respiratory Rate 16 Blood Pressure 119/59 Pulse Oximetry 94 Oxygen Delivery Me thod Room Air Oxygen Flow Rate Fraction of Inspir ed Oxygen Hydration adequate: Yes Nausea and vomiting: No Pain level: 1 Mental status: Baseline
== END 2025-02-18 13:03 | disposition home or self-care (01) ==
PROVIDERS: PCP Family Medicine; Visit Provider Student in an Organized Health Care Education/Training Program
PROC: 0DJ08ZZ Inspection of Upper Intestinal Tract, Via Natural or Artificial Opening Endoscopic (ICD-10-PCS; principal; 2025-02-18 12:45)
DX: K21.9 Gastro-esophageal reflux disease without esophagitis (principal); R12 Heartburn; K29.70 Gastritis, unspecified, without bleeding; J44.9 Chronic obstructive pulmonary disease, unspecified; I10 Essential (primary) hypertension; E78.5 Hyperlipidemia, unspecified; E66.01 Morbid (severe) obesity due to excess calories; Z68.38 Body mass index [BMI] 38.0-38.9, adult; E07.9 Disorder of thyroid, unspecified; Z80.0 Family history of malignant neoplasm of digestive organs; Z87.891 Personal history of nicotine dependence
CPT/HCPCS: 43239; 88305; 88342; J2704; J3490; J7030

== ENCOUNTER → 2025-02-26 15:15 | Outpatient (BNVA) | payer BC, MEDICAID, SELFPAY | PROVIDERS: PCP Family Medicine; Referring Provider Family Medicine; Visit Provider Specialist | DX: E03.9 Hypothyroidism, unspecified (principal); G43.011 Migraine without aura, intractable, with status migrainosus | CPT/HCPCS: 36415; 85651 ==